=== PATIENT | female | born 2000 | race American Indian/Alaskan Native ===

== ENCOUNTER 2021-03-30 03:07 | Inpatient (IN) ==
[2021-03-30] MEDS ORDERED: IOPAMIDOL 100 ML BOTTLE IV ONE (03:08)
[2021-03-30] MEDS ORDERED: ACETAMINOPHEN 325 MG TABLET PO ONE (03:38)
[2021-03-30] MEDS ORDERED: LACTATED RINGERS 1,000 ML IV ONE (03:38)
[2021-03-30] MEDS ORDERED: morphine 4 MG/ML VIAL IV ONE (03:38)
[2021-03-30] MEDS ORDERED: ONDANSETRON 4 MG/2 ML VIAL IV ONE (03:39)
[2021-03-30] MEDS ORDERED: HYDROmorphone 0.5 MG/0.5 ML SYRINGE IV ONE ×2 (04:39→05:47)
[2021-03-30 04:43] LABS: Basophils # (Auto) 0.04 K/mcL (0.00-0.20); Basophils % (Auto) 0.3 % (0.0-2.0); Eosinophils # (Auto) 0.11 K/mcL (0.00-0.70); Eosinophils % (Auto) 0.7 % (0.0-7.0); Hematocrit 35.7 % (36.0-48.0); Hemoglobin 11.9 g/dL (12.0-15.0); Lymphocytes # (Auto) 1.53 K/mcL (1.50-4.80); Lymphocytes % (Auto) 10.4 % (15.0-49.0); Mean Cell Volume 95.7 fL (80.0-100.0); Mean Corpuscular HGB Conc 33.3 g/dL (31.0-36.0); Mean Platelet Volume 9.2 fL (7.4-10.4); Monocytes # (Auto) 1.01 K/mcL (0.10-0.90); Monocytes % (Auto) 6.8 % (1.0-12.0); Neutrophils % (Auto) 81.8 % (38.0-78.0); Platelet Count 332 K/mcL (140-440); RBC 3.73 M/mcL (4.00-5.20); Red Cell Distribution Width 13.2 % (11.5-14.5); WBC 14.8 K/mcL (4.5-11.0)
[2021-03-30 05:00] LABS: ALT/SGPT 14 U/L (<40); AST/SGOT 15 U/L (<32); Albumin 3.5 gm/dL (3.2-5.2); Alkaline Phosphatase 70 U/L (39-117); Bilirubin,Total 0.8 mg/dL (0.1-1.0); Blood Urea Nitrogen 6 mg/dL (6-20); Calcium 8.6 mg/dL (8.6-10.4); Carbon Dioxide 22 mmol/L (22-30); Chloride 101 mmol/L (96-108); Globulin 3.6 gm/dL (2.2-3.7); Glomerular Filtration Rate 123; Glucose 91 mg/dL (70-105)
[2021-03-30] MEDS ORDERED: PIPERACILLIN SODIUM/TAZOBACTAM 4.5 GM in DEXTROSE 5% IN WATER 50 ML IV ONE (05:18)
--- NOTE | 2021-03-30 05:40 | Cat Scan Report ---
INDICATION: abdominal pain, distention, fever, recent D C COMPARISON: None. TECHNIQUE: Axial images were obtained through the abdomen and pelvis. Sagittally and coronally reformatted images. 80 mL Isovue 370 injected intravenously. Oral contrast material was not administered FINDINGS: The examination was initially interpreted by [facility] Lung bases:Negative. No pulmonary parenchymal nodule. No pleural fluid or pericardial fluid Liver:Negative. No focal intrahepatic mass. No focal abnormality. Liver contour is smooth. No evidence for cirrhosis Gallbladder, bilary:No calcified gallstones. No gallbladder wall thickening. No dilated intra or extrahepatic bile ducts. Spleen:No splenomegaly. Normal enhancement of splenic and portal veins. Pancreas:No pancreatic mass. No peripancreatic abnormality Adrenal glands:Negative Kidneys, ureters, bladder:No solid renal mass. No hydronephrosis. No obstructing calculi. There is no hydroureter. No ureteral stone No bladder calculi or detectable mass Gastrointestinal:No detectable colonic mass. There is no diverticulitis. Mild mural thickening and enhancement. There is no mechanical small bowel obstruction. Appendix: The appendix is negative Vascular:Negative abdominal aorta. Superior mesenteric artery and celiac trunk are normal. Normal opacification of the inferior mesenteric artery Lymphatic:No retroperitoneal or mesenteric adenopathy Mesentery, peritoneum: There is mild free intraperitoneal fluid. There is mesenteric edema with injection of the mesenteric fat, especially in the pelvis. Findings may be secondary to peritonitis. There is no pneumoperitoneum. There is no intra-abdominal abscess. Reproductive:Uterus is anteflexed. No detectable mass. No adnexal mass Musculoskeletal:No lumbar compression fractures. Sacrum and pelvis are negative. No hip fracture. No abdominal wall or inguinal hernia IMPRESSION: 1. Mild free intraperitoneal fluid and prominent mesenteric edema. Findings are consistent with peritonitis. 2. No intra-abdominal abscess. No pneumoperitoneum 3. Prominent small bowel may be secondary to ileus The exam was performed using radiation dose optimization techniques including, but not limited to, automated exposure control, adjustment of the mA and/or kV according to patient size and use of iterative reconstruction technique. Interpreted and Authenticated by: Neal Pulido 03/30/21
--- NOTE | 2021-03-30 05:53 | Emergency Department Note ---
Abdominal Pain [facility] General Chief Complaint: Abdominal Pain Stated Complaint: ABD pain, cramping Time Seen by Provider: 03/30/21 03:32 Source: patient and family Mode of arrival: wheelchair Limitations: no limitations History of Present Illness HPI Narrative: Narrative: 20-year-old female recently discharged yesterday following treatment for endometritis, underwent suction D&C with Dr. Delgado, was being treated for PID and discharged on doxycycline after this all began following an elective medical . Returning to the ED today with worsening abdominal pain, cramps fever and nausea. No urinary symptoms still has some mild vaginal spotting but this is improved since her D&C, denies vaginal discharge. Pain radiates from her low abdomen up across to her whole abdomen. Related Data Home Medications Medication Instructions Recorded Confirmed valacyclovir 500 mg PO DAILY 03/27/21 03/27/21 Allergies Allergy/AdvReac Type Severity Reaction Status Date / Time No Known Drug Allergies Allergy Verified 03/30/21 03:10 Review of Systems ROS ROS Narrative: Narrative: At least 10 systems reviewed and otherwise acutely negative except as in the HPI PFSH Narrative Patient History Narrative: Narrative: Medical/Surgical/Family History All Active Problems Acute pelvic inflammatory disease (PID) (Acute) Peritonitis (Acute) Low Back Pain (Acute) Mid back pain (Acute) Urinary tract infection (Acute) Upper respiratory infection (Acute) Yeast infection of the vagina (Acute) Low back strain (Acute) Scabies (Acute) Vaginitis (Acute) Acute endometritis (Acute) Medical History Low Back Pain Low back strain Mid back pain Upper respiratory infection Urinary tract infection Yeast infection of the vagina Social History Smoking Status: Never smoker Alcohol Intake Frequency: does not drink Substance Use: does not use Exam Narrative Narrative: Narrative: Constitutional: normally developed, appears in pain Head: Normocephalic, atraumatic, Eyes: No Icterus, ENT: Moist mucus membranes, Neck: Supple, Cardiac: Normal heart sounds, palpable radial pulses, no peripheral edema Pulmonary: Normal respiratory effort. Breath sounds clear, no wheeze, rhonchi, rales, Gastrointestinal: Abdomen soft, mildly distended in the lower abdomen she is significantly tender all across her lower abdomen with guarding, no rebound or rigidity. Musculoskeletal: No gross deformities, well perfused Skin: warm, dry Neuro: Alert and oriented. General Limitations: no limitations Course Vital Signs Vital signs: Vital Signs Temperature 38.8 C H 03/30/21 03:07 Pulse Rate 87 03/30/21 03:07 Respiratory Rate 20 03/30/21 03:07 Blood Pressure 123/78 03/30/21 03:07 Pulse Oximetry (%) 99 03/30/21 03:07 Temperature 38.3 C H 03/30/21 05:19 Pulse Rate 74 03/30/21 06:46 Respiratory Rate 20 03/30/21 03:07 Blood Pressure 123/68 03/30/21 06:46 Pulse Oximetry (%) 97 03/30/21 06:46 MDM MDM Narrative Medical decision making narrative: Narrative: Patient presents with worsening abdominal pain fevers since being recently discharged following treatment for endometritis/D&C/PID, sent home on doxycycline. Will obtain labs, CT of the abdomen, she is quite tender. CBC shows a leukocytosis 14.8 although this is improving from previous 19 > 16 > 14 currently Lactic acid is normal Electrolytes unremarkable Covid and urinalysis negative for infection CT of her abdomen is suspicious for peritonitis with ascites and secondary enteritis presumably related to prior pelvic intervention per the radiologist. Reports no perforation nor abscess when I discussed with him. Patient was given dose of Zosyn, did discuss all results with patient and family members, vitals remained stable pain improving, repeat exam improved from initial I did speak with Dr. Delgado, he suspects this is more likely related to her known PID, does accept admission under his service, continue with Zosyn. I did also consult with Dr. Maza given the findings of suspected peritonitis, possible enteritis on the CT, will also evaluate and follow. Continue with antibiotics for now Plan discussed with patient family all agreeable, vitals stable pain improved on further evaluation admitted at this time Lab Data Result diagrams: 03/30/21 03:59 03/30/21 03:59 Labs: Lab Results 03/30/21 03/30/21 03/30/21 Range/Units 03:59 03:59 03:59 WBC 14.8 H (4.5-11.0) K/mcL RBC 3.73 L (4.00-5.20) M/mcL Hgb 11.9 L (12.0-15.0) g/dL Hct 35.7 L (36.0-48.0) % MCV 95.7 (80.0-100.0) fL MCH 31.9 (26.0-34.0) pg MCHC 33.3 (31.0-36.0) g/dL RDW 13.2 (11.5-14.5) % Plt Count 332 (140-440) K/mcL MPV 9.2 (7.4-10.4) fL Neut % (Auto) 81.8 H (38.0-78.0) % Lymph % (Auto) 10.4 L (15.0-49.0) % Long % (Auto) 6.8 (1.0-12.0) % Eos % (Auto) 0.7 (0.0-7.0) % Baso % (Auto) 0.3 (0.0-2.0) % Lymph # (Auto) 1.53 (1.50-4.80) K/mcL Long # (Auto) 1.01 H (0.10-0.90) K/mcL Eos # (Auto) 0.11 (0.00-0.70) K/mcL Baso # (Auto) 0.04 (0.00-0.20) K/mcL Absolute Neutrophils 12.06 H (1.80-8.00) K/mcL VBG Lactic Acid 0.8 (0.5-2.0) mmol/L Sodium 134 (133-145) mmol/L Potassium 3.4 (3.3-5.1) mmol/L Chloride 101 (96-108) mmol/L Carbon Dioxide 22 (22-30) mmol/L Anion Gap 11.0 (8.0-16.0) BUN 6 (6-20) mg/dL Creatinine 0.7 (0.6-1.1) mg/dL GFR Calculation 123 Glucose 91 (70-105) mg/dL Calcium 8.6 (8.6-10.4) mg/dL Total Bilirubin 0.8 (0.1-1.0) mg/dL AST 15 (<32) U/L ALT 14 (<40) U/L Alkaline Phosphatase 70 (39-117) U/L Total Protein 7.1 (5.9-8.4) gm/dL Albumin 3.5 (3.2-5.2) gm/dL Globulin 3.6 (2.2-3.7) gm/dL Albumin/Globulin Ratio 1.0 (1.0-2.3) ED POC Tests ED POC Tests: JAYSON - SARS Antigen Negative Discharge Plan Patient/Caregiver Discharge Instructions Pt seen by RETAIL SERVICE TECHNICIAN/PA only: No Clinical Impression: Acute pelvic inflammatory disease (PID), Peritonitis Patient Disposition: Xfer As Inpt ([facility]) Condition: Fair Follow up with: Not On Staff,Physician [Primary Care Provider] - Prescriptions: No Action valacyclovir 1 gram tablet 500 mg PO DAILY RF: 0
[2021-03-30] MEDS: 0.9 % SODIUM CHLORIDE 1,000 ML IV SCH ×3 (08:41→19:20)
[2021-03-30] MEDS: HYDROmorphone 0.5 MG/0.5 ML SYRINGE IV PRN ×4 (08:42→17:26)
--- NOTE | 2021-03-30 13:42 | History and Physical Report ---
DATE OF ADMISSION: 03/30/2021 HISTORY OF PRESENT ILLNESS: The patient is a 20-year-old female who presented to the emergency room last night with acute abdominal pain. The patient had been admitted early in the weekend with possible septic , retained placenta, and pelvic inflammatory disease. The patient had a positive chlamydia and gonorrhea test. She was treated with oral and IV antibiotics, both Zithromax, doxycycline, and Rocephin. The patient improved substantially. White count from 15 to 19 and then back to 15. She was doing exceptionally well and remained afebrile through her entire hospital stay. Pain was well controlled. She was discharged home yesterday. The patient bounced back early this morning, complaining increased abdominal pain. CT scan does show peritonitis with fluid in the cul de sac and edema. She has ileus. There are no uterine issues. No pelvic structures are abnormal. The patient appears to have normal pelvic pathology. There were no adnexal masses. She reports that her pain has been increased, very significant. 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 She had retained products and subsequent D and C. She also had GC, gonorrhea and chlamydia and received IV antibiotics. PAST MEDICAL HISTORY: Negative. SURGICAL HISTORY: She had D and C a few days ago. ALLERGIES: None. MEDICATIONS: None. SOCIAL HISTORY: She smokes marijuana 2 to 3 times per day, but not anything significant alcohol or smoking. FAMILY HISTORY: Unremarkable. REVIEW OF SYSTEMS: She is having abdominal pain and fever otherwise negative. PHYSICAL EXAMINATION: VITAL SIGNS: Blood pressure 111/69, temperature 98.6, pulse 69, respiratory rate of 16. HEENT: Pupils are equal, round, and reactive to light. Extraocular muscles are intact. Mouth: Shows no erythema or exudate. NECK: Supple, no lymphadenopathy, no thyromegaly. LUNGS: Clear to auscultation. No wheeze, rales, or rhonchi. HEART: Regular rate and rhythm. No murmur, gallops, or rub. ABDOMEN: Soft with acute tenderness throughout. She has positive tenderness in all quadrants. No guarding or rebound tenderness. EXTREMITIES: Show no clubbing, cyanosis, or edema. LABORATORY DATA: Her white blood cell count is 14.8, H and H is 11.9 and 35.7, platelets are 332. She has left shift with 81.8 neutrophils. Lactic acid is 0.8, sodium 134, potassium 3.4, chloride 101, CO2 22, BUN 6, creatinine 0.7, AST 15, ALT 14. CT scan shows generalized peritonitis. ASSESSMENT AND PLAN: A 20-year-old female with acute abdominal pain and peritonitis. I have admitted her and I am requesting a general surgery consult. She is on Zosyn for antibiotics. I will add clindamycin. We will continue to follow as she progresses. JENNIFER:marcelino Job ID: [id number] Doc ID: [id number] Israel Delgado MD
[2021-03-30] MEDS ORDERED: CLINDAMYCIN 900 MG in DEXTROSE 5% IN WATER 50 ML IV SCH (14:00)
[2021-03-30] MEDS: PIPERACILLIN SODIUM/TAZOBACTAM 3.375 GM in DEXTROSE 5% IN WATER 50 ML IV SCH ×2 (14:29→17:26)
--- NOTE | 2021-03-30 14:37 | General Surgery Consult Note ---
[facility] Data of Consult Consult date: 03/30/21 Requesting physician: Israel Delgado Primary Care Provider: Physician Not On Staff Consult Narrative Chief complaint: Diffuse abdominal pain Reason for consult: Clinical peritonitis status post suction D&C for septic History of present illness: 20-year-old female who was readmitted earlier this morning with findings suggestive of pelvic inflammatory disease and diffuse peritonitis. The patient had medical voluntary interruption of about 1 week ago. She had a 5-week at the time. She states that she passed the uterine contents however she developed crampy abdominal pain with bleeding and was seen at [facility]. She was treated symptomatically and discharged. She was later seen in our emergency room and was admitted for suspected septic . Her initial white count was 15,000. She underwent suction D&C. Cultures grew out GC and chlamydia. She was treated with Rocephin and doxycycline and improved clinically however her white blood count increased to 19,200. Her blood count reduced to 16,000 with treatment and she was discharged on doxycycline for 10 days. She continued to be symptomatic and was readmitted this morning. A CT of the abdomen and pelvis shows thickening of the wall of the small bowel in the lower abdomen with dilated loops of small bowel suggestive of diffuse ileus. She also has pelvic fluid. She has been started on Zosyn and her present white blood count is 14,800. Her pain however is much more prominent than it was previously. She now has upper abdominal tenderness and pain with nausea. I am evaluating the patient because of the potential for peritonitis though I do not think it is a primary intestinal problem. cc:: CC: Israel Delgado Constitutional Constitutional: Present chills, fever(s), malaise and night sweats Cardiovascular Cardiovascular: Present diaphoresis; Absent chest pain Respiratory Respiratory: Present pain on inspirtation; Absent dyspnea and wheezing Gastrointestinal Gastrointestinal: Present abdominal pain, cramping, nausea and vomiting; Absent heartburn Genitourinary Genitourinary: Present abnormal vaginal bleeding, pelvic pain and vaginal discharge Additional comments: Status post D&C Psychiatric Psychiatric: Present depression Hematologic/Lymphatic Hematologic/Lymphatic: Absent easy bleeding, easy bruising and lymphadenopathy PFSH PFSH All Active Problems Acute pelvic inflammatory disease (PID) (Acute) Peritonitis (Acute) Low Back Pain (Acute) Mid back pain (Acute) Urinary tract infection (Acute) Upper respiratory infection (Acute) Yeast infection of the vagina (Acute) Low back strain (Acute) Scabies (Acute) Vaginitis (Acute) Acute endometritis (Acute) Medical History Low Back Pain Low back strain Mid back pain Upper respiratory infection Urinary tract infection Yeast infection of the vagina Social History alcohol intake frequency: does not drink substance use type: does not use MEDS/ALLERGIES Home Medications and Allergies Home Medications Medication Instructions Recorded Confirmed Type valacyclovir 500 mg PO DAILY 03/27/21 03/27/21 History Allergies Allergy/AdvReac Type Severity Reaction Status Date / Time No Known Drug Allergies Allergy Verified 03/30/21 03:10 Physical Examination Vital Signs Vital signs: Temp Pulse Resp BP Pulse Ox 98.6 F 69 18 111/69 96 03/30/21 11:50 03/30/21 11:50 03/30/21 07:30 03/30/21 11:50 03/30/21 07:30 General physical appearance General physical exam: well developed, well nourished, moderate distress and moderate pain Eyes Eye exam: PERRL and normal ocular movement ENT ENT exam: normal mucosa, no hearing loss and no congestion Head Head exam IM: Present atraumatic, normal inspection and normocephalic Neck Neck exam: no masses, no bruits, trachea midline and no lymphadenopathy Cardiovascular Cardiovascular exam IM: Present normal rate and rhythm, RRR, +S1 and +S2; Absent JVD Respiratory Respiratory exam: normal expansion, normal respiratory effort and clear to auscultation Abdomen Abdomen: Present tender (Diffusely tender abdomen prominent in both upper quadrants and in the pelvis and hypogastric) and distended (Moderate abdominal distention) Integumentary Integumentary: Present no rash, no growths and no abnormal pigmentation Neurologic Neurologic: Present normal coordination and normal sensation Musculoskeletal Musculoskeletal: Present normal posture and other Psychiatric Psychiatric: Present oriented to time, oriented to person, oriented to place, speech is normal and memory intact Results Labs Result diagrams: 03/30/21 03:59 03/30/21 03:59 Labs: Abnormal lab results 03/30/21 Range/Units 03:59 WBC 14.8 H (4.5-11.0) K/mcL RBC 3.73 L (4.00-5.20) M/mcL Hgb 11.9 L (12.0-15.0) g/dL Hct 35.7 L (36.0-48.0) % Neut % (Auto) 81.8 H (38.0-78.0) % Lymph % (Auto) 10.4 L (15.0-49.0) % [place] # (Auto) 1.01 H (0.10-0.90) K/mcL Absolute Neutrophils 12.06 H (1.80-8.00) K/mcL Diabetes panel 03/30/21 Range/Units 03:59 Sodium 134 (133-145) mmol/L Potassium 3.4 (3.3-5.1) mmol/L Chloride 101 (96-108) mmol/L Carbon Dioxide 22 (22-30) mmol/L BUN 6 (6-20) mg/dL Creatinine 0.7 (0.6-1.1) mg/dL Glucose 91 (70-105) mg/dL Calcium 8.6 (8.6-10.4) mg/dL AST 15 (<32) U/L ALT 14 (<40) U/L Alkaline Phosphatase 70 (39-117) U/L Total Protein 7.1 (5.9-8.4) gm/dL Albumin 3.5 (3.2-5.2) gm/dL Calcium panel 03/30/21 Range/Units 03:59 Calcium 8.6 (8.6-10.4) mg/dL Albumin 3.5 (3.2-5.2) gm/dL Pituitary panel 03/30/21 Range/Units 03:59 Sodium 134 (133-145) mmol/L Potassium 3.4 (3.3-5.1) mmol/L Chloride 101 (96-108) mmol/L Carbon Dioxide 22 (22-30) mmol/L BUN 6 (6-20) mg/dL Creatinine 0.7 (0.6-1.1) mg/dL Glucose 91 (70-105) mg/dL Calcium 8.6 (8.6-10.4) mg/dL Adrenal panel 03/30/21 Range/Units 03:59 Sodium 134 (133-145) mmol/L Potassium 3.4 (3.3-5.1) mmol/L Chloride 101 (96-108) mmol/L Carbon Dioxide 22 (22-30) mmol/L BUN 6 (6-20) mg/dL Creatinine 0.7 (0.6-1.1) mg/dL Glucose 91 (70-105) mg/dL Calcium 8.6 (8.6-10.4) mg/dL Total Bilirubin 0.8 (0.1-1.0) mg/dL AST 15 (<32) U/L ALT 14 (<40) U/L Alkaline Phosphatase 70 (39-117) U/L Total Protein 7.1 (5.9-8.4) gm/dL Albumin 3.5 (3.2-5.2) gm/dL All other labs normal. A/P Assessment and plan (1) Acute pelvic inflammatory disease (PID): Status: Acute (2) Acute endometritis: Status: Acute Comment: Pt with Pelvic Inflammatory Disease. Pt needs to be treated for this. WBC count is increasing. Will maintain on Rocephin and start Doxycycline. Will give Zithromax for Chlamydia. Maintain on ABX. Will repeat CBC in the morning. (3) Peritonitis: Status: Acute Narrative A/P Narrative: Patient's clinical condition suggests diffuse peritonitis with worse symptoms in the upper abdomen in addition to her pelvic inflammatory problems. In view of history of gonococcal infection and septic would consider ongoing salpingitis with possible gonococcal perihepatitis in the upper abdomen. Since she appears to be improving clinically with antibiotics I agree with the continuation of treatment of the gonococcal infection and chlamydia medically. I do not think that there is any evidence of any primary intestinal problems. If not progressing as anticipated then consider diagnostic laparoscopy with pelvic and peritoneal washout. I will gladly be available for this if needed. Time Spent With Patient Time: Total time spent is greater than 50% in coordination of care (as documented) at patient's floor/unit and/or counseling patient:
--- NOTE | 2021-03-30 14:53 | Ultrasound Report ---
INDICATION: Pelvic Pain TECHNIQUE: Transabdominal and endovaginal pelvic ultrasound. Grayscale and color flow Doppler spectral imaging COMPARISON: Previous examination dated 03/27/2021 FINDINGS: Uterus: Uterus measures 9.4 x 2.9 x 5.5 cm. Uterus is slightly anteflexed. Myometrium is normal. Endometrium:Endometrium measures 6 mm. No abnormal fluid. No echogenic abnormality. No evidence for endometrial air. Endometrium is now within normal limits and improved Right Ovary:Right ovary measures 4.8 x 2.8 x 1.9 cm. No solid or dominant cystic mass Left Ovary:Left ovary measures 4.0 x 1.9 x 2.7 cm. No solid or dominant cystic mass Cul de sac: Trace free fluid IMPRESSION: 1. Interval improvement since 03/27/2021 2. Endometrium now appears normal Interpreted and Authenticated by: Neal Pulido 03/30/21
[2021-03-30] MEDS: HYDROmorphone 1 MG/ML SYRINGE IV PRN ×3 (18:40→23:50)
[2021-03-30] MEDS ORDERED: HYDROmorphone 1 MG/ML SYRINGE ONE (18:44)
[2021-03-30] MEDS: ONDANSETRON 4 MG/2 ML VIAL IV PRN ×2 (18:50→23:49)
[2021-03-31] MEDS: PIPERACILLIN SODIUM/TAZOBACTAM 3.375 GM in DEXTROSE 5% IN WATER 50 ML IV SCH ×3 (00:13→12:59)
[2021-03-31] MEDS: oxyCODONE HCL 5 MG TABLET PO PRN ×5 (01:54→19:54)
[2021-03-31] MEDS: HYDROmorphone 1 MG/ML SYRINGE IV PRN ×10 (02:34→23:39)
[2021-03-31] MEDS: 0.9 % SODIUM CHLORIDE 1,000 ML IV SCH ×3 (06:25→23:58)
[2021-03-31 10:01] LABS: Basophils # (Auto) 0.07 K/mcL (0.00-0.20); Basophils % (Auto) 0.5 % (0.0-2.0); Eosinophils # (Auto) 0.18 K/mcL (0.00-0.70); Eosinophils % (Auto) 1.2 % (0.0-7.0); Hematocrit 33.9 % (36.0-48.0); Hemoglobin 11.7 g/dL (12.0-15.0); Lymphocytes # (Auto) 2.25 K/mcL (1.50-4.80); Lymphocytes % (Auto) 15.3 % (15.0-49.0); Mean Cell Volume 93.4 fL (80.0-100.0); Mean Corpuscular HGB Conc 34.5 g/dL (31.0-36.0); Mean Platelet Volume 8.8 fL (7.4-10.4); Monocytes # (Auto) 2.22 K/mcL (0.10-0.90); Monocytes % (Auto) 15.1 % (1.0-12.0); Neutrophils % (Auto) 67.9 % (38.0-78.0); Platelet Count 367 K/mcL (140-440); RBC 3.63 M/mcL (4.00-5.20); Red Cell Distribution Width 12.9 % (11.5-14.5); WBC 14.8 K/mcL (4.5-11.0)
--- NOTE | 2021-03-31 12:49 | OB/GYN Progress Note ---
SUBJECTIVE Subjective Patient information: Note initiated : 03/31/21 at 12:41 pm Service Date, if different from initiated Date: [] Patient: Emile Peguero 20 y/o F admitted on 03/30/21 for Abd Pain, Cramping. The patient is still having pain today and her abdomen is still distended as of now. The patient reports not feeling better but she is no worse currently. She has not had a bowel movement in a few days. She is still using the Dilaudid for pain medication. No fever reported. Chief Complaint: [] Abdominal/Pelvic Pain Abdo Exam. Some pain with mild distention noted in lower abdomen Constitutional Vitals: Vital Signs Temp Pulse Resp BP Pulse Ox 98.0 F 86 18 125/73 95 03/31/21 08:00 03/31/21 08:00 03/31/21 08:00 03/31/21 08:00 03/31/21 08:00 Period Temp Pulse Resp BP Sys/Scales Pulse Ox Last 24 Hr 98.0 F-98.9 F 72-86 16-18 103-127/64-80 94-99 Intake and Output 03/30/21 03/31/21 03/31/21 21:59 05:59 13:59 Intake Total 1700 1290 50 Output Total 900 800 400 Balance 800 490 -350 Weight 171 lb Intake & Output: Intake & Output 03/30/21 03/31/21 03/31/21 21:59 05:59 13:59 Intake Total 1700 1290 50 Output Total 900 800 400 Balance 800 490 -350 Weight 171 lb Intake: IV 1100 1050 50 Sodium Chloride 0.9% 1,000 ml @ 1000 1000 100 mls/hr IV .Q10H GEREMIAS Rx#: [id number] Zosyn 3.375 gm In Dextrose 5% 100 50 50 in Water 50 ml @ 100 mls/hr IV Q6H GEREMIAS Rx#:[id number] Oral 600 240 Output: Void Amount 700 800 400 Emesis 200 Other: Meal Dinner Percent of Meal Consumed 25% Feeding Ability Assist with Tray Set Up Urine Appearance Clear Clear Clear Urine Color Bright Yellow Bright Yellow Bright Yellow Urine Odor Normal Normal Normal # Voids 1 # Emeses 1 A/P Assessment and plan (1) Acute pelvic inflammatory disease (PID): Status: Acute Comment: Pt with WBC which is the same and unchanged. Will start her on Doxycycline today IV. (2) Peritonitis: Status: Acute Comment: Unchanged abdomen. If still unchanged as of tomorrow will consider a Laparoscopy. Time Spent With Patient Time: Total time spent is greater than 50% in coordination of care (as documented) at patient's floor/unit and/or counseling patient:
[2021-03-31] MEDS ORDERED: DOCUSATE SODIUM 100 MG CAPSULE PO PRN (12:51)
--- NOTE | 2021-03-31 13:38 | General Surgery Progress Note ---
SUBJECTIVE Subjective Patient information: Note initiated : 03/31/21 at 1:33 pm Service Date, if different from initiated Date: [] Patient: Emile Peguero 20 y/o F admitted on 03/30/21 for Abd Pain, Cramping. Chief Complaint: [] Principal diagnosis: Pelvic inflammatory disease Interval history: Patient states that she does not feel better. Her ultrasound last evening showed improvement with her pelvic fluid and edema. There is no evidence of abscess or ovarian swelling. She still has significant upper abdominal discomfort. She has been afebrile. She has not had flatus. She denies nausea. White blood count 14.8, hemoglobin 11.7, hematocrit 33.9. Constitutional Vitals: Vital Signs Temp Pulse Resp BP Pulse Ox 98.0 F 86 18 125/73 95 03/31/21 08:00 03/31/21 08:00 03/31/21 08:00 03/31/21 08:00 03/31/21 08:00 Period Temp Pulse Resp BP Sys/Scales Pulse Ox Last 24 Hr 98.0 F-98.9 F 72-86 16-18 103-127/64-80 94-99 Intake and Output 03/30/21 03/31/21 03/31/21 21:59 05:59 13:59 Intake Total 1700 1290 50 Output Total 900 800 400 Balance 800 490 -350 Weight 171 lb Intake & Output: Intake & Output 03/30/21 03/31/21 03/31/21 21:59 05:59 13:59 Intake Total 1700 1290 50 Output Total 900 800 400 Balance 800 490 -350 Weight 171 lb Intake: IV 1100 1050 50 Sodium Chloride 0.9% 1,000 ml @ 1000 1000 100 mls/hr IV .Q10H GER[facility]IAS Rx#: [id number] Zosyn 3.375 gm In Dextrose 5% 100 50 50 in Water 50 ml @ 100 mls/hr IV Q6H GER[facility]IAS Rx#:[id number] Oral 600 240 Output: Void Amount 700 800 400 Emesis 200 Other: Meal Dinner Percent of Meal Consumed 25% Feeding Ability Assist with Tray Set Up Urine Appearance Clear Clear Clear Urine Color Bright Yellow Bright Yellow Bright Yellow Urine Odor Normal Normal Normal # Voids 1 # Emeses 1 Respiratory Respiratory exam: Present normal respiratory exam and CTAB Cardiovascular Cardiovascular exam: Present normal rate and rhythm, RRR, +S1 and +S2; Absent JVD GI/Abdominal GI/Abdominal exam: Present distended, hypoactive bowel sounds and tenderness Additional comments: Mild abdominal distention; hypoactive bowel sounds; tenderness to palpation in right upper quadrant and hypogastrium and suprapubic area A/P Assessment and plan (1) Acute pelvic inflammatory disease (PID): Status: Acute Comment: Pt with WBC which is the same and unchanged. Will start her on Doxycycline today IV. (2) Acute endometritis: Status: Acute Comment: Pt with Pelvic Inflammatory Disease. Pt needs to be treated for this. WBC count is increasing. Will maintain on Rocephin and start Doxycycline. Will give Zithromax for Chlamydia. Maintain on ABX. Will repeat CBC in the morning. (3) Peritonitis: Status: Acute Comment: Unchanged abdomen. If still unchanged as of tomorrow will consider a Laparoscopy. Narrative A/P Narrative: Antibiotics were changed by Dr. Delgado earlier today We will add Reglan 10 mg IV every 6 for ileus Time Spent With Patient Time: Total time spent is greater than 50% in coordination of care (as documented) at patient's floor/unit and/or counseling patient:
[2021-03-31] MEDS: cefTRIAXone 2 GM in DEXTROSE 5% IN WATER 50 ML IV SCH (14:46)
[2021-03-31] MEDS: DOXYCYCLINE 100 MG in DEXTROSE 5% IN WATER 100 ML IV SCH ×2 (15:17→23:38)
[2021-03-31] MEDS: METOCLOPRAMIDE 10 MG/2 ML VIAL IV SCH ×2 (17:29→23:38)
[2021-03-31] MEDS: ONDANSETRON 4 MG/2 ML VIAL IV PRN (17:30)
[2021-04-01] MEDS: oxyCODONE HCL 5 MG TABLET PO PRN ×5 (00:27→21:36)
[2021-04-01] MEDS: METOCLOPRAMIDE 10 MG/2 ML VIAL IV SCH ×4 (05:22→23:44)
[2021-04-01] MEDS: 0.9 % SODIUM CHLORIDE 1,000 ML IV SCH ×2 (05:39→06:43)
[2021-04-01] MEDS: HYDROmorphone 1 MG/ML SYRINGE IV PRN ×2 (07:29→10:57)
[2021-04-01 08:00] LABS: Basophils # (Auto) 0.06 K/mcL (0.00-0.20); Basophils % (Auto) 0.5 % (0.0-2.0); Eosinophils # (Auto) 0.24 K/mcL (0.00-0.70); Eosinophils % (Auto) 2.1 % (0.0-7.0); Hemoglobin 10.5 g/dL (12.0-15.0); Lymphocytes # (Auto) 2.04 K/mcL (1.50-4.80); Lymphocytes % (Auto) 18.2 % (15.0-49.0); Mean Cell Volume 93.6 fL (80.0-100.0); Mean Corpuscular HGB Conc 32.8 g/dL (31.0-36.0); Neutrophils % (Auto) 63.2 % (38.0-78.0); Platelet Count 365 K/mcL (140-440); RBC 3.42 M/mcL (4.00-5.20); Red Cell Distribution Width 12.8 % (11.5-14.5); WBC 11.2 K/mcL (4.5-11.0)
[2021-04-01] MEDS: cefTRIAXone 2 GM in DEXTROSE 5% IN WATER 50 ML IV SCH (08:14)
[2021-04-01] MEDS: FAMOTIDINE/PF 20 MG/2 ML VIAL IV SCH ×2 (08:18→21:35)
--- NOTE | 2021-04-01 08:49 | OB/GYN Progress Note ---
SUBJECTIVE Subjective Patient information: Note initiated : 04/01/21 at 8:46 am Service Date, if different from initiated Date: [] Patient: Emile Peguero 20 y/o F admitted on 03/30/21 for Abd Pain, Cramping. Chief Complaint: [] Pt feeling much better today. She had a bowel movement yesterday and feeling better with less abdominal distention. She has less pain today but still with some pain. Pt with no fever. Eating but with some reflux. Will start on Pepcid. Pt is improving. Principal diagnosis: Pelvic inflammatory disease Constitutional Vitals: Vital Signs Temp Pulse Resp BP Pulse Ox 96.8 F L 86 16 122/79 95 04/01/21 08:00 04/01/21 08:00 04/01/21 08:00 04/01/21 08:00 04/01/21 08:00 Period Temp Pulse Resp BP Sys/Scales Pulse Ox Last 24 Hr 96.8 F-99.3 F 81-86 16-18 119-128/72-82 91-95 Intake and Output 03/31/21 04/01/21 04/01/21 21:59 05:59 13:59 Intake Total 1510 1050 Output Total 1999 Balance -490 1050 Weight 180 lb 8 oz Intake & Output: Intake & Output 03/31/21 04/01/21 04/01/21 21:59 05:59 13:59 Intake Total 1510 1050 Output Total 1999 Balance -490 1050 Weight 180 lb 8 oz Intake: IV 1150 100 Sodium Chloride 0.9% 1,000 ml @ 1000 100 mls/hr IV .Q10H GER[facility] Rx#: [id number] Vibramycin 100 mg In Dextrose 5 100 100 % in Water 100 ml @ 100 mls/hr IV Q12H [facility]ER[facility] Rx#:[id number] Rocephin 2 gm In Dextrose 5% in 50 Water 50 ml @ 100 mls/hr IV Q24H GER[facility] Rx#:[id number] Oral 360 950 Output: Void Amount 1999 Other: Meal Dinner Percent of Meal Consumed 50% # Voids 1 3 GI/Abdominal GI/Abdominal exam: Present soft and tenderness A/P Assessment and plan (1) Acute pelvic inflammatory disease (PID): Status: Acute Comment: Pt with WBC which is the same and unchanged. Will start her on Doxycycline today IV. Pt improved today. Pt is on Rocephin and Doxycycline. Improving. WBC is decreasing and pt is symptomatically better. Will continue IV antibiotics. Pt likely in the hospital at least 1-2 days further until her pain is resolved. Time Spent With Patient Time: Total time spent is greater than 50% in coordination of care (as documented) at patient's floor/unit and/or counseling patient:
[2021-04-01] MEDS: DOXYCYCLINE 100 MG in DEXTROSE 5% IN WATER 100 ML IV SCH ×2 (10:41→21:37)
--- NOTE | 2021-04-01 11:22 | General Surgery Progress Note ---
SUBJECTIVE Subjective Patient information: Note initiated : 04/01/21 at 11:17 am Service Date, if different from initiated Date: [] Patient: Emile Peguero 20 y/o F admitted on 03/30/21 for Abd Pain, Cramping. Chief Complaint: [] Principal diagnosis: Pelvic inflammatory disease Interval history: Patient is clinically improved. She has been afebrile. Her white blood count has decreased from 14.8-11.2. Hemoglobin is stable. She has had some indigestion which has been treated with famotidine. She had bowel movements last evening and is passing copious flatus. She still has some distention. Constitutional Vitals: Vital Signs Temp Pulse Resp BP Pulse Ox 96.8 F L 86 16 122/79 95 04/01/21 08:00 04/01/21 08:00 04/01/21 08:00 04/01/21 08:00 04/01/21 08:00 Period Temp Pulse Resp BP Sys/Scales Pulse Ox Last 24 Hr 96.8 F-99.3 F 81-86 16-18 119-128/72-82 91-95 Intake and Output 03/31/21 04/01/21 04/01/21 21:59 05:59 13:59 Intake Total 1510 1050 350 Output Total 2000 800 Balance -490 1050 -450 Weight 180 lb 8 oz Intake & Output: Intake & Output 03/31/21 04/01/21 04/01/21 21:59 05:59 13:59 Intake Total 1510 1050 350 Output Total 2000 800 Balance -490 1050 -450 Weight 180 lb 8 oz Intake: IV 1150 100 50 Sodium Chloride 0.9% 1,000 ml @ 1000 100 mls/hr IV .Q10H [facility] Rx#: [id number] Vibramycin 100 mg In Dextrose 5 100 100 % in Water 100 ml @ 100 mls/hr IV Q12H [facility] Rx#:[id number] Rocephin 2 gm In Dextrose 5% in 50 50 Water 50 ml @ 100 mls/hr IV Q24H [facility]ER[facility]IAS Rx#:[id number] Oral 360 950 300 Output: Void Amount 2000 800 Other: Meal Dinner Breakfast Percent of Meal Consumed 50% 100% Feeding Ability Independent # Voids 1 3 Neck Neck exam: Present full ROM and normal inspection Respiratory Respiratory exam: Present normal respiratory exam and CTAB Cardiovascular Cardiovascular exam: Present normal rate and rhythm, RRR, +S1 and +S2; Absent JVD GI/Abdominal GI/Abdominal exam: Present normal bowel sounds, distended (Mildly distended but with good active bowel sounds) and tenderness (Persistent lower abdominal tenderness but improved from yesterday; near complete resolution of right upper quadrant tenderness) Extremities Exam Extremities exam: Present full ROM and neurovascular intact; Absent pedal edema Neurological Exam Neurological exam: Present alert and oriented X3; Absent motor sensory deficit Psychiatric Psychiatric exam: Present anxious and flat affect A/P Assessment and plan (1) Acute pelvic inflammatory disease (PID): Status: Acute Comment: Pt with WBC which is the same and unchanged. Will start her on Doxycycline today IV. Pt improved today. Pt is on Rocephin and Doxycycline. Improving. WBC is decreasing and pt is symptomatically better. Will continue IV antibiotics. Pt likely in the hospital at least 1-2 days further until her pain is resolved. (2) Acute endometritis: Status: Acute Comment: Pt with Pelvic Inflammatory Disease. Pt needs to be treated for this. WBC count is increasing. Will maintain on Rocephin and start Doxycycline. Will give Zithromax for Chlamydia. Maintain on ABX. Will repeat CBC in the morning. (3) Peritonitis: Status: Acute Comment: Unchanged abdomen. If still unchanged as of tomorrow will consider a Laparoscopy. Narrative A/P Narrative: Patient has made significant improvement in the past 24hours. She is tolerating diet without difficulty. Her white blood count is near normal. Continue antibiotics for 24 to 48 hours and then discharged home on oral medications. Time Spent With Patient Time: Total time spent is greater than 50% in coordination of care (as documented) at patient's floor/unit and/or counseling patient:
[2021-04-01] MEDS: POLYETHYLENE GLYCOL 3350 17 GM PACKET PO SCH ×2 (17:00→21:47)
[2021-04-01] MEDS ORDERED: MAG HYDROX/AL HYDROX/SIMETH 30 ML ORAL.SUSP PO PRN (18:17)
[2021-04-01] MEDS ORDERED: MAGNESIUM HYDROXIDE 30 ML ORAL.SUSP ONE (19:30)
[2021-04-02] MEDS: POLYETHYLENE GLYCOL 3350 17 GM PACKET PO SCH (05:11)
[2021-04-02] MEDS: METOCLOPRAMIDE 10 MG/2 ML VIAL IV SCH ×3 (05:11→18:03)
[2021-04-02 06:51] LABS: Basophils # (Auto) 0.08 K/mcL (0.00-0.20); Basophils % (Auto) 0.9 % (0.0-2.0); Eosinophils # (Auto) 0.26 K/mcL (0.00-0.70); Hemoglobin 10.9 g/dL (12.0-15.0); Lymphocytes # (Auto) 2.05 K/mcL (1.50-4.80); Lymphocytes % (Auto) 23.4 % (15.0-49.0); Mean Cell Volume 95.1 fL (80.0-100.0); Mean Platelet Volume 8.7 fL (7.4-10.4); Monocytes # (Auto) 1.36 K/mcL (0.10-0.90); Monocytes % (Auto) 15.5 % (1.0-12.0); Neutrophils % (Auto) 57.2 % (38.0-78.0); Platelet Count 418 K/mcL (140-440); RBC 3.47 M/mcL (4.00-5.20); Red Cell Distribution Width 12.8 % (11.5-14.5); WBC 8.8 K/mcL (4.5-11.0)
[2021-04-02] MEDS: oxyCODONE HCL 5 MG TABLET PO PRN ×2 (07:40→13:13)
[2021-04-02] MEDS: cefTRIAXone 2 GM in DEXTROSE 5% IN WATER 50 ML IV SCH (07:41)
[2021-04-02] MEDS: DOXYCYCLINE 100 MG in DEXTROSE 5% IN WATER 100 ML IV SCH (09:09)
[2021-04-02] MEDS: FAMOTIDINE/PF 20 MG/2 ML VIAL IV SCH (09:14)
--- NOTE | 2021-04-02 16:16 | General Surgery Progress Note ---
SUBJECTIVE Subjective Patient information: Note initiated : 04/02/21 at 4:14 pm Service Date, if different from initiated Date: [] Patient: Emile Peguero 20 y/o F admitted on 03/30/21 for Abd Pain, Cramping. Chief Complaint: [] Principal diagnosis: Pelvic inflammatory disease Interval history: Patient is doing well. She has minimal discomfort at this time. She has no upper abdominal discomfort and only mild suprapubic d iscomfort. She is tolerating diet without nausea. She is afebrile and has normal white count. Constitutional Vitals: Vital Signs Temp Pulse Resp BP Pulse Ox 97.6 F 65 16 108/55 98 04/02/21 12:00 04/02/21 08:00 04/02/21 12:00 04/02/21 12:00 04/02/21 12:00 Period Temp Pulse Resp BP Sys/Scales Pulse Ox Last 24 Hr 97.6 F-98.8 F 65-78 16-16 108-124/55-75 94-98 Intake and Output 04/02/21 04/02/21 04/02/21 05:59 13:59 21:59 Intake Total 500 150 Balance 500 150 Intake & Output: Intake & Output 04/02/21 04/02/21 04/02/21 05:59 13:59 21:59 Intake Total 500 150 Balance 500 150 Intake: IV 100 150 Vibramycin 100 mg In Dextrose 5 100 100 % in Water 100 ml @ 100 mls/hr IV Q12H [facility] Rx#:[id number] Rocephin 2 gm In Dextrose 5% in 50 Water 50 ml @ 100 mls/hr IV Q24H [facility]ER[facility] Rx#:[id number] Oral 400 Other: # Voids 1 # Bowel Movements 1 Neck Neck exam: Present full ROM and normal inspection Respiratory Respiratory exam: Present normal respiratory exam and CTAB Cardiovascular Cardiovascular exam: Present normal rate and rhythm, RRR, +S1 and +S2; Absent JVD GI/Abdominal GI/Abdominal exam: Present normal bowel sounds, distended (Mildly distended but with good active bowel sounds) and tenderness (Persistent lower abdominal tenderness but improved from yesterday; near complete resolution of right upper quadrant tenderness) Extremities Exam Extremities exam: Present full ROM and neurovascular intact; Absent pedal edema Neurological Exam Neurological exam: Present alert and oriented X3; Absent motor sensory deficit Psychiatric Psychiatric exam: Present anxious and flat affect A/P Assessment and plan (1) Acute pelvic inflammatory disease (PID): Status: Acute Comment: Pt with WBC which is the same and unchanged. Will start her on Doxycycline today IV. Pt improved today. Pt is on Rocephin and Doxycycline. Improving. WBC is decreasing and pt is symptomatically better. Will continue IV antibiotics. Pt likely in the hospital at least 1-2 days further until her pain is resolved. (2) Acute endometritis: Status: Acute Comment: Pt with Pelvic Inflammatory Disease. Pt needs to be treated for this. WBC count is increasing. Will maintain on Rocephin and start Doxycycline. Will give Zithromax for Chlamydia. Maintain on ABX. Will repeat CBC in the morning. (3) Peritonitis: Status: Acute Comment: Unchanged abdomen. If still unchanged as of tomorrow will consider a Laparoscopy. Narrative A/P Narrative: Patient is clinically stable and can be discharged on oral medication at the discretion of her primary professor of criminal justice. Time Spent With Patient Time: Total time spent is greater than 50% in coordination of care (as documented) at patient's floor/unit and/or counseling patient:
[2021-04-02] MEDS ORDERED: POLYETHYLENE GLYCOL 3350 17 GM PACKET PO SCH (21:00)
--- NOTE | 2021-04-03 08:01 | Discharge Summary ---
DATE OF ADMISSION: 03/30/2021 DATE OF DISCHARGE: 04/02/2021 ADMITTING DIAGNOSES: Pelvic inflammatory disease, acute endometritis, peritonitis. DISCHARGE DIAGNOSES: Pelvic inflammatory disease, acute endometritis, peritonitis. HOSPITAL COURSE: The patient is a 20-year-old female who presents to the hospital after a suction D&C over the weekend. She went home on Tuesday after receiving IV antibiotics. She bounced back with acute onset severe abdominal pain. The patient had a positive gonorrhea and chlamydia test. She potentially had PID. She was afebrile when she was sent home on Tuesday; however, patient bounced back due to increasing pain and discomfort. White blood cell count was 14.8. She had been discharged home on doxycycline after receiving Rocephin and azithromycin here. The patient was treated initially with Zosyn and her white count did not change after one night. CT scan did show peritonitis, but no masses in her abdomen. 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 The patient was started, after the first day, on doxycycline and Rocephin. She immediately improved. White blood cell count dropped to 11.0, and is 8.0 today. The patient has remained afebrile with stable vital signs. She reports minor abdominal discomfort. She has remained on Rocephin and doxycycline. Blood cultures were read out as negative. On examining her today, patient reports that she feels good with minimal discomfort. She is having no bleeding or tenderness. She is to be discharged home today. DISCHARGE INSTRUCTIONS: She is to follow up in the office next week to be checked to make sure she is doing fine. She was told to call for increased fever, pain or discomfort. She is being discharged on doxycycline twice daily and also on ibuprofen. [id number] Job ID: [id number] Doc ID: [id number] Israel Delgado MD
== END 2021-04-02 18:55 | disposition home or self-care (01) | DRG 757 ==
LOC: ED 03:07 → MEDSUR 07:30
PROVIDERS: ADMIT Obstetrics & Gynecology; ATTEND Obstetrics & Gynecology